=== PATIENT | male | born 1975 | race Caucasian/White ===

== ENCOUNTER 2019-04-27 17:06 | Emergency (ER) | payer OTHER ==
[~2019-04-27] VITALS: Ht 180.3 cm; Wt 102.3 kg
[~2019-04-27 17:06] MED LIST: LISI-424 PO
[2019-04-27] MEDS ORDERED: IBUPROFEN 600 MG TABLET ONE (18:20)
[2019-04-27] MEDS ORDERED: IBUPROFEN 200 MG TABLET PO ONE (18:30)
[2019-04-27] MEDS ORDERED: SPIRONOLACTONE 25 MG TABLET PO STA (18:36)
[2019-04-27] MEDS ORDERED: OXYcodone/APAP 5/325MG TABLET ONE (18:40)
--- NOTE | 2019-04-27 18:48 | NUR ---
MED REQUEST TO PHARMACY.
[2019-04-27] MEDS ORDERED: OXYcodone/APAP 5/325MG TABLET PO ONE (19:00)
[2019-04-27 19:35] VITALS: BP 155/93
== END 2019-04-27 20:09 | disposition home or self-care (01) ==
LOC: ED 18:06
DX: S83.206A Unspecified tear of unspecified meniscus, current injury, right knee, initial encounter (principal); I10 Essential (primary) hypertension; X50.1XXA Overexertion from prolonged static or awkward postures, initial encounter; Y93.89 Activity, other specified; Y92.89 Other specified places as the place of occurrence of the external cause; Y99.0 Civilian activity done for income or pay
CPT/HCPCS: 29505; 99284